=== PATIENT | female | born 1995 | race Caucasian/White ===

== ENCOUNTER 2020-05-09 01:20 | Observation (INO) | payer MEDICAID, OTHER ==
[~2020-05-09] VITALS: Ht 149.9 cm; Wt 74.8 kg
[2020-05-09 02:52] LABS: Basophils # (auto) 0.1 10 ^3/uL (0-0.2); Basophils % (auto) 0.8 % (0.0-2.0); Eosinophils # (auto) 0.2 10 ^3/uL (0-0.8); Eosinophils % (auto) 2.3 % (0.0-7.0); Hematocrit 33.7 % (36.0-46.0); Hemoglobin 11.2 g/dL (12.2-16.2); Lymphocytes # (auto) 2.1 10 ^3/uL (0.4-5.4); Lymphocytes % (auto) 28.2 % (10.0-50.0); Mean Corpuscular Hemoglobin 29.3 pg (28.0-32.0); Mean Corpuscular Hgb Conc. 33.3 g/dL (32.0-36.0); Mean Corpuscular Volume 88.1 fL (80.0-100.0); Monocytes # (auto) 0.5 10 ^3/uL (0-1.3); Neutrophils # (auto) 4.7 10 ^3/uL (1.6-8.6); Neutrophils % (auto) 61.7 % (37.0-80.0); Nucleated Red Blood Cells % 0.1 %; Platelet Count (auto) 191 10^3/uL (140-450); Red Blood Cells 3.82 10^6/uL (4.0-5.20); Red Cell Distribution Width 13.1 % (11.8-14.3); White Blood Cell 7.5 10^3/uL (4.4-10.8)
[2020-05-09 03:09] LABS: INR 0.98 (0.9-1.15); Partial Thromboplastin Time 24.8 sec (23.64-32.05)
[2020-05-09 03:21] LABS: Urine Bacteria FEW /hpf (None Seen); Urine Blood Negative /uL (Negative); Urine Mucus FEW (None Seen); Urine Specific Gravity 1.025 (1.001-1.035); Urine WBC 6 /hpf (0 - 5)
[2020-05-09 03:51] LABS: Albumin 2.5 g/dL (3.4-5.0); Calcium 8.7 mg/dL (8.5-10.1); Potassium 3.5 mmol/L (3.5-5.1)
[2020-05-09 03:54] LABS: BUN/Creatinine Ratio 16.7; Bilirubin, Total 0.3 mg/dL (0.2-1.0); Total Protein 7.2 g/dL (6.4-8.2)
== END 2020-05-09 04:13 | disposition home or self-care (01) | DRG 566 ==
LOC: LDRP 01:20
PROVIDERS: ADMIT Specialist; ATTEND Specialist
DX: O62.9 Abnormality of forces of labor, unspecified (principal); Z3A.34 34 weeks gestation of pregnancy
CPT/HCPCS: 36415; 59025; 76818; 80053; 81001; 81002; 84550; 85025; 85610; 85730; G0378

== ENCOUNTER 2020-06-11 10:00 | Inpatient (IN) | payer MEDICAID ==
[~2020-06-11] VITALS: Ht 149.9 cm; Wt 77.1 kg
[2020-06-11 10:58] LABS: Basophils # (auto) 0.1 10 ^3/uL (0-0.2); Basophils % (auto) 0.9 % (0.0-2.0); Eosinophils # (auto) 0.1 10 ^3/uL (0-0.8); Eosinophils % (auto) 1.9 % (0.0-7.0); Hematocrit 33.7 % (36.0-46.0); Hemoglobin 11.1 g/dL (12.2-16.2); Lymphocytes # (auto) 2.2 10 ^3/uL (0.4-5.4); Mean Corpuscular Hemoglobin 28.4 pg (28.0-32.0); Mean Corpuscular Hgb Conc. 32.9 g/dL (32.0-36.0); Mean Corpuscular Volume 86.3 fL (80.0-100.0); Monocytes # (auto) 0.5 10 ^3/uL (0-1.3); Monocytes % (auto) 6.5 % (0.0-12.0); Neutrophils # (auto) 4.6 10 ^3/uL (1.6-8.6); Neutrophils % (auto) 61.7 % (37.0-80.0); Nucleated Red Blood Cells % 0.2 %; Platelet Count (auto) 208 10^3/uL (140-450); Red Blood Cells 3.91 10^6/uL (4.0-5.20); Red Cell Distribution Width 14.4 % (11.8-14.3); White Blood Cell 7.5 10^3/uL (4.4-10.8)
[2020-06-11 11:11] LABS: INR 0.93 (0.9-1.15); Partial Thromboplastin Time 24.8 sec (23.0-31.2)
[2020-06-11 11:14] LABS: Albumin 2.3 g/dL (3.4-5.0); Calcium 8.6 mg/dL (8.5-10.1)
[2020-06-11 11:18] LABS: Bilirubin, Total 0.2 mg/dL (0.2-1.0); Total Protein 6.5 g/dL (6.4-8.2); Uric Acid 6.8 mg/dL (2.6-6.0)
[2020-06-11 11:27] LABS: Alcohol, Urine < 3.0 mg/dL (0-10); Amphetamine Screen, Urine NEGATIVE (NEGATIVE); Barbiturate Scree,Urine NEGATIVE (NEGATIVE); Benzodiazephine Screen, Urine NEGATIVE (NEGATIVE); Cannabinoid Screen, Urine NEGATIVE (NEGATIVE); Cocaine Screen, Urine NEGATIVE (NEGATIVE); Opiate Scree,Urine NEGATIVE (NEGATIVE); Phencyclidine Screen, Urine NEGATIVE (NEGATIVE); Protein, Urine 63.1 mg/dL (0.0-11.9)
[2020-06-11] MEDS ORDERED: LACT. RINGERS/OXYTOCIN 20UNITS 1,000 ML IV SCH ×2 (16:24→22:16)
[2020-06-11] MEDS ORDERED: LACTATED RINGER'S 1,000 ML IV SCH (16:24)
[2020-06-11] MEDS ORDERED: WITCH HAZEL-GLYCERIN PAD TOP PRN (16:30)
[2020-06-11] MEDS ORDERED: PHISODERM TOP SOLN 240ML BTL TOP PRN (16:30)
[2020-06-11] MEDS ORDERED: DERMOPLAST 60ML BOTTLE TOP PRN (16:30)
[2020-06-11] MEDS ORDERED: LIDOCAINE 2%HCL (LOCAL ANESTH.) INJ 20ML MDV ID ONE (16:30)
[2020-06-11] MEDS ORDERED: ceFAZolin 1GM/50ML 50 ML IV SCH (18:00)
[2020-06-11] MEDS ORDERED: miSOPROStol 50 MCG per PRE-CUT 1/2 TAB PO PRN (18:00)
[2020-06-11] MEDS ORDERED: CLINDAMYCIN 900MG IV 50 ML IV SCH (18:00)
[2020-06-11 18:52] LABS: Urine Bacteria FEW /hpf (None Seen); Urine Blood Negative /uL (Negative); Urine Mucus FEW (None Seen); Urine Specific Gravity 1.022 (1.001-1.035); Urine WBC 28 /hpf (0 - 5)
[2020-06-11] MEDS ORDERED: LACTATED RINGER'S 1,000 ML IV ONE (19:20)
[2020-06-11] MEDS ORDERED: ePHEDrine SULFATE 50 MG/ML AMP IV ONE ×2 (19:30→21:00)
[2020-06-11] MEDS ORDERED: ROPIVACAINE HCL 100 ML EPI SCH ×2 (19:30→21:00)
[2020-06-11] MEDS ORDERED: NALOXONE HCL 0.4 MG/ML VIAL IV ONE ×2 (19:30→21:00)
[2020-06-11] MEDS ORDERED: fentaNYL CITRATE 100 MCG/2 ML VL IV ONE ×2 (19:30→21:00)
[2020-06-11] MEDS ORDERED: LIDOCAINE HCL 2 %PF INJ 10ML AMP IJ ONE (19:30)
--- NOTE | 2020-06-11 20:42 | NUR ---
Sahu catheter insertion Order obtained from Jimmie Terrell CNM. Patient educated on catheter and reason for insertion. All questions answered. Sahu catheter inserted with clean sterile technique. Patient tolerated well.
[2020-06-11] MEDS ORDERED: LACTATED RINGER'S 500 ML IV ONE (20:47)
[2020-06-11] MEDS ORDERED: SODIUM CHLORIDE 0.9% 500 ML IV PRN (20:47)
[2020-06-11] MEDS ORDERED: MAGNESIUM SULFATE 40MG/ML 1,000 ML IV SCH (21:04)
[2020-06-11] MEDS ORDERED: MAGNESIUM SULFATE 100 ML IV ONE (21:15)
[2020-06-11] MEDS: LACTATED RINGER'S 1,000 ML IV SCH (21:43)
[2020-06-11] MEDS ORDERED: TERBUTALINE SULFATE 1 MG/ML 1ML VIAL SC ONE (22:30)
[2020-06-12] MEDS ORDERED: ONDANSETRON HCL 4 MG/2 ML VIAL IV PRN (03:15)
[2020-06-12] MEDS ORDERED: IBUPROFEN 600 MG TAB PO PRN (03:30)
[2020-06-12] MEDS ORDERED: LABETALOL HCL 200 MG TAB PO ONE (03:30)
[2020-06-12] MEDS: ACETAMINOPHEN 325 MG TAB PO PRN ×4 (03:34→20:28)
--- NOTE | 2020-06-12 04:30 | NUR ---
Ambulation: Patient OOB with standby assistance by RN. Patient ambulated to bedside chair with steady gait. Pericare teaching provided. Sahu catheter remains intact, no hung below bladder, no kinks noted. Clean gown provided and bed linen changed. Patient ambulated back to bed with steady gait and no distress noted.
[2020-06-12 05:09] LABS: RPR Non Reactive (Non Reactive)
[2020-06-12] MEDS: LACTATED RINGER'S 1,000 ML IV SCH (07:26)
[2020-06-12 07:30] VITALS: BP 105/62
--- NOTE | 2020-06-12 08:57 | NUR ---
RECEIVED CALL FROM LAB REGARDING MAGNESIUM LEVEL OF 7.0
--- NOTE | 2020-06-12 09:09 | NUR ---
CALL PLACED TO DR VILLARREAL AND NOTIFIED OF MAGNESIUM LEVEL, ORDER RECEIVED TO DC MAGNESIUM.
--- NOTE | 2020-06-12 09:10 | NUR ---
MAGNESIUM DISCONTINUED, PT UPDATED ON POC.
--- NOTE | 2020-06-12 09:30 | NUR ---
PT STATES SHE FEELS LIKE HER CATHETER IS LEAKING, VISUALIZED A LARGE AMOUNT OF URINE ON PAD. DR VILLARREAL NOTIFIED, ORDER RECEIVED TO DC LONG DUE TO MAGNESIUM DISCONTINUED.
--- NOTE | 2020-06-12 09:50 | NUR ---
LONG CATH DISCONTINUED, 500ML OF CLEAR YELLOW URINE IN BAG. PT ASSISTED TO BR, STEADY GAIT, VOIDED 500ML. PERICARE COMPLETED, PADS CHANGED. PT AMBULATED TO BED WITHOUT DIFFICULTY.
--- NOTE | 2020-06-12 10:35 | NUR ---
YESIKA ANNI ON UNIT, STATES SHE SPOKE WITH PT AND IS CLEARED BY SINGING MESSENGER.
[2020-06-12 15:30] VITALS: BP 118/78
--- NOTE | 2020-06-12 16:03 | NUR ---
assessment Patient is a 25 year old female who is alert and oriented. Prior to admission patient lived home with family and was independent. Per consult limited care. Patient informed me she had care for the first 4 visits. Patient informed me due to the Covid she was uncomfortable going out and to the doctor office. Patient informed me this is her 3rd baby and she knew to watch for movement and she was taking her vitamins. Patient informed me she had one visit at the ER towards the end. Patient informed me she has good family support. Patient informed me she has all provisions for the baby. Patient is cleared by social service stand point. Addendum: 06/12/20 at 1608 by Kamryn Engel Amended: Links added.
[2020-06-12] MEDS ORDERED: TETANUS-DIPTH-ACEL PERTUSSIS 0.5ML SYR Tdap IM ONE (17:00)
--- NOTE | 2020-06-12 17:12 | NUR ---
DR VILLARREAL NOTIFIED OF BP'S AND REPEAT MAG LEVEL, ORDER RECEIVED TO LEAVE MAGNESIUM OFF.
[2020-06-12 18:55] VITALS: BP 120/69
[2020-06-12 23:00] VITALS: BP 135/95
[2020-06-13 03:00] VITALS: BP 143/91
[2020-06-13] MEDS: ACETAMINOPHEN 325 MG TAB PO PRN (05:47)
[2020-06-13 07:00] VITALS: BP 143/91
[2020-06-13 11:07] VITALS: BP 136/92
[2020-06-13] MEDS ORDERED: PREN-96 PO (11:38)
--- NOTE | 2020-06-13 11:53 | NUR ---
Discharge: Discharge instructions given as ordered. Pt encouraged to follow up with OPERATIONS ACCOUNTANT as instructed. All questions and concerns addressed. Patient verbalized understanding. Medication reconciliation completed and copy given to patient. Patient encouraged to prepare to depart unit.
--- NOTE | 2020-06-13 12:00 | NUR ---
Discharge: Patient taken to vehicle via wheelchair with all personal belongings, accompanied by staff and family member. No distress noted at time of departure, no adverse changes in status since initial assessment.
== END 2020-06-13 12:00 | disposition home or self-care (01) | DRG 560 ==
LOC: LDRP 10:00 → OBSVTOIN 16:15 → LDRP 16:23
PROVIDERS: ADMIT Obstetrics & Gynecology; ATTEND Obstetrics & Gynecology
PROC: 3E0R3BZ Introduction of Anesthetic Agent into Spinal Canal, Percutaneous Approach (ICD-10-PCS; principal; 2020-06-12)
PROC: 00HU33Z Insertion of Infusion Device into Spinal Canal, Percutaneous Approach (ICD-10-PCS; 2020-06-12)
PROC: 10E0XZZ Delivery of Products of Conception, External Approach (ICD-10-PCS; 2020-06-12)
DX: O14.94 Unspecified pre-eclampsia, complicating childbirth (principal); O36.5930 Maternal care for other known or suspected poor fetal growth, third trimester, not applicable or unspecified; O76 Abnormality in fetal heart rate and rhythm complicating labor and delivery; Z37.0 Single live birth; Z3A.39 39 weeks gestation of pregnancy; Z20.828 Contact with and (suspected) exposure to other viral communicable diseases; Z88.0 Allergy status to penicillin; Z88.8 Allergy status to other drugs, medicaments and biological substances
CPT/HCPCS: 36415; 59025; 59409; 62282; 76805; 80053; 80307; 81001; 81002; 82570; 83735; 84112; 84156; 84550; 85025; 85610; 85730; 86592; 86703; 86762; 86850; 86900; 86901; 87340; 87426; 94760; 96360; 96361; 96365; 96366; 96374; G0378; J2405; J2590